=== PATIENT | female | born 1965 | race Native Hawaiian/Other Pacific Islander ===

== ENCOUNTER 2017-12-24 12:27 | Day surgery (SDC) | payer BC ==
[2017-12-16 12:07] VITALS: BMI 30.8
[2017-12-24] MEDS ORDERED: Midazolam 2 MG/2 ML VIAL ONE (13:44)
[2017-12-24] MEDS ORDERED: Propofol 10 mg/ml Inj (20 ML) ONE (13:49)
--- NOTE | 2017-12-24 15:03 | PCM.SURG1 ---
Surgeon's Initial Post Op Note - Surgeon's Notes Surgeon: Nena Sifuentes MD Lab Manager: none Type of Anesthesia: General LMA Pre-Operative Diagnosis: abnormal uterine bleeding, enodmetiral polyp Operative Findings: 8-10 week size uteurs, enodmetoply polypoid ittues, bilaterla ostial visulzed, submucos mass anteiro 1cm resecsted Post-Operative Diagnosis: same as above, Operation Performed: hysteroscopic myomecotmy, fraction dilatin adn ucrrettage, enodmetiral polypecotmy Specimen/Specimens Removed: endocervical currettign, endometiral curretting, enodmeiral polyp, submucosal myoma Estimated Blood Loss: EBL {In ML}: 5 Blood Products Given: N/A Drains Used: No Drains Post-Op Condition: Good Date of Surgery/Procedure: 12/24/17 Time of Surgery/Procedure: 13:30
[2017-12-24 15:39] VITALS: BP 130/60; PULSE 78; RESP 20; TEMP 97.8; O2SAT 100
--- NOTE | 2017-12-25 06:22 | OP ---
PROCEDURE DATE: 12/24/2017 SURGEON: Nena Sifuentes MD ICE BAG ASSEMBLER: None. TYPE OF ANESTHESIA: General LMA. PREOPERATIVE DIAGNOSES: Abnormal uterine bleeding, endometrial polyp. POSTOPERATIVE DIAGNOSES: Abnormal uterine bleeding, endometrial polyp, submucosal myoma. OPERATIVE FINDINGS: A 8 weeks size anteverted uterus noted. Bilateral ostia visualized with small polypoid tissue noted and submucosal myoma anterior less than 1 cm. OPERATION PERFORMED: Hysteroscopic myomectomy, fractional dilation and curettage, endometrial polypectomy. ESTIMATED BLOOD LOSS: 5 mL. SPECIMEN REMOVED: Endocervical curettings, endometrial curettings, endometrial polyp, submucosal myoma. BLOOD PRODUCTS: None. COMPLICATIONS: None. DESCRIPTION OF PROCEDURE: The patient was taken to the operating room where she was given general anesthesia. Once it was found to be adequate, she was positioned on the operating table in a dorsal supine position with legs supported using stirrups. The patient was then prepped and draped in the usual sterile fashion. A time-out confirmed correct patient and correct procedure. A red rubber catheter was then inserted into the urethra to drain the bladder. A Alves retractor was placed in the anterior and posterior fornix of vagina. Cervix was adequately visualized. Single tooth tenaculum was placed on the anterior lip of the cervix. Endocervical curettings were obtained with Kevorkian curette and sent to pathology [facility]. The cervix was sequentially dilated to allow for introduction of 5 mm hysteroscope under direct visualization. At that time, the polypoid tissue had been removed. Upon visualization, bilateral ostia were visualized, the cavity was adequately distended and there was submucosal myoma noted at the anterior portion. The MyoSure device was then inserted under direct visualization, and the mass was then carefully resected. There was good hematosis noted. Hysteroscope was then removed. A gentle curettage was done at 360 degrees until gritty texture was noted. Specimen was sent to Pathology. All instruments removed. There was good hemostasis at the tenaculum puncture site. At the end of the procedure, all needle, sponge, and instrument counts were noted and correct x2. The patient tolerated the procedure well and was transferred to the recovery room in stable condition. Nena Sifuentes MD
== END 2017-12-24 15:35 | disposition home or self-care (01) ==
LOC: C.SDS 12:27
PROVIDERS: ATTEND Obstetrics & Gynecology
DX: D25.0 Submucous leiomyoma of uterus (principal); N84.0 Polyp of corpus uteri; N72 Inflammatory disease of cervix uteri; N71.9 Inflammatory disease of uterus, unspecified; N92.0 Excessive and frequent menstruation with regular cycle; I10 Essential (primary) hypertension; E11.9 Type 2 diabetes mellitus without complications; E78.5 Hyperlipidemia, unspecified; Z86.011 Personal history of benign neoplasm of the brain; Z98.890 Other specified postprocedural states; Z79.899 Other long term (current) drug therapy
CPT/HCPCS: 58561; 82948; 88305; J1885; J2001; J2250; J2270; J2405; J2704; J3010